=== PATIENT | male | born 1990 | race Caucasian/White ===

== ENCOUNTER 2023-01-08 14:15 | Outpatient (CLI) | payer BC, SELFPAY ==
--- NOTE | ~2023-01-08 | US_ITS ---
EXAMINATION: US art doppler w press LE BI DATE: 01/08/2023 15:23 INDICATION: Anesthesia and paresthesias of skin at the lower extremities TECHNIQUE: Segmental pressures and plethysmographic and Doppler waveforms of the brachial and lower e xtremity arteries were obtained. COMPARISON: None. FINDINGS: Right and left brachial artery pressures of 127 mm Hg and 135 mm Hg, respectively, are concordant (no rmal difference <= 30 mmHg). The right and left high-thigh pressure indices are 1.15 and 1.13, respec tively (normal > 1.2). The right ankle-brachial index (GREGORIO) is 1.04 (normal >= 0.9-1). The right great toe-brachial index (T BI) is 0.61 (normal >= 0.6-0.8). The right lower extremity segmental pressure gradients are normal (n ormal gradients <= 20-30 mmHg between adjacent levels on the same leg or the same levels on the two l egs). Arterial waveforms are triphasic at the right common femoral and superficial femoral arteries a nd biphasic at the right popliteal, posterior tibial and dorsalis pedis arteries with brisk systolic upstrokes throughout. The left GREGORIO is 0.96. The left TBI is 0.24. The left lower extremity segmental pressure gradients are normal. Arterial waveforms are triphasic at the left common femoral, superficial femoral and poplite al arteries and biphasic at the left posterior tibial and dorsalis pedis arteries with brisk systolic upstrokes throughout. IMPRESSION: 1. Arterial occlusive disease to the bilateral lower limbs with mildly decreased right TBI and border line left GREGORIO and moderately decreased left TBI. Reviewed, dictated and finalized at location L. IMPRESSION: 1. Arterial occlusive disease to the bilateral lower limbs with mildly decrease d right TBI and borderline left GREGORIO and moderately decreased left TBI.
== END 2023-01-08 14:16 | disposition home or self-care (01) ==
PROVIDERS: PCP Family Medicine; Visit Provider Nurse Practitioner Family
DX: I70.203 Unspecified atherosclerosis of native arteries of extremities, bilateral legs (principal); R20.9 Unspecified disturbances of skin sensation; R20.2 Paresthesia of skin; R20.0 Anesthesia of skin
CPT/HCPCS: 93923

== ENCOUNTER 2023-01-12 14:07 | Outpatient (CLI) | payer BC, SELFPAY ==
--- NOTE | ~2023-01-12 | US_ITS ---
EXAMINATION: US art doppler w press UE BI DATE: 01/12/2023 14:57 INDICATION: Anesthesia of skin with numbness primarily in the lower limbs but occasionally in the arm s TECHNIQUE: Segmental pressures and plethysmographic and Doppler waveforms of the upper extremity alessandra kelsy were obtained. COMPARISON: None. FINDINGS: Right and left brachial artery pressures of 126 mm Hg and 121 mm Hg, respectively, are concordant (no rmal difference <= 30 mmHg). The right finger:brachial systolic pressure ratio is 0.56 (normal > 0.8) . Segmental pressure gradients are normal. Arterial waveforms are biphasic at the right ulnar artery and triphasic at the remaining arteries in the right upper limb with normal brisk systolic upstrokes throughout (normal upstroke < 0.2 s). The left finger:brachial systolic pressure ratio is 0.80. Segmental pressure gradients are normal. Ar terial waveforms are biphasic at the left brachial and ulnar arteries and triphasic at the remaining arteries in the left upper limb with brisk systolic upstrokes throughout. IMPRESSION: 1. Arterial occlusive disease to bilateral upper limbs with borderline decreased left and mildly decr eased right finger:brachial indices. Reviewed, dictated and finalized at location A. IMPRESSION: 1. Arterial occlusive disease to bilateral upper limbs with borderline decrease d left and mildly decreased right finger:brachial indices.
== END 2023-01-12 14:08 | disposition home or self-care (01) ==
PROVIDERS: PCP Family Medicine; Visit Provider Nurse Practitioner Family
DX: I70.208 Unspecified atherosclerosis of native arteries of extremities, other extremity (principal); R20.0 Anesthesia of skin; R20.2 Paresthesia of skin
CPT/HCPCS: 93923

== ENCOUNTER 2023-01-23 09:40 | Outpatient (CLI) | payer BC, SELFPAY ==
--- NOTE | ~2023-01-23 | MR_ITS ---
EXAMINATION: MR brain/brain stem wo con DATE: 01/23/2023 11:18 INDICATION: Anesthesia of skin. Bilateral arm and leg numbness and tingling. TECHNIQUE: Magnetic resonance imaging (MRI) of the brain and brainstem was performed without intraven ous contrast. COMPARISON: None. FINDINGS: There is no intracranial hemorrhage, acute infarction, or abnormal intracranial mass lesion . The ventricles are normal in size. The orbits are normal. There is mild mucosal thickening in the m axillary sinuses. The mastoid air cells are normal. IMPRESSION: 1. Normal brain. Reviewed, dictated and finalized at location A. IMPRESSION: 1. Normal brain.
== END 2023-01-23 09:41 | disposition home or self-care (01) ==
PROVIDERS: PCP Family Medicine; Visit Provider Nurse Practitioner Family
DX: I70.90 Unspecified atherosclerosis (principal); R20.2 Paresthesia of skin; R20.0 Anesthesia of skin
CPT/HCPCS: 70551